=== PATIENT | male | born 1940 | race Caucasian/White ===

== ENCOUNTER → 2023-12-03 08:40 | Outpatient (REF) | payer MEDICARE, OTHER, SELFPAY ==
[2023-12-03 12:13] LABS: Blood Urea Nitrogen 20 mg/dl (9-20); Calcium 9.6 mg/dl (8.4-10.2); Carbon Dioxide 25 mmol/L (22-30); Chloride 103 mmol/L (98-107); Glucose 109 mg/dl (70-99); Potassium 4.7 mmol/L (3.5-5.1); Sodium 138 mmol/L (135-145); eGFR > 60.00
[2023-12-03 12:41] LABS: PSA, Total - Diagnostic 0.43 ng/ml (0.0-4.0)
== END ==
LOC: HWLAB 08:40
PROVIDERS: ATTENDING PHYSICIAN Radiology Radiation Oncology; FAMILY PHYSICIAN Family Medicine; REFERRING PHYSICIAN Family Medicine Geriatric Medicine
DX: C61 Malignant neoplasm of prostate (principal); C44.42 Squamous cell carcinoma of skin of scalp and neck
CPT/HCPCS: 36415; 80048; 84153

== ENCOUNTER → 2024-01-05 08:48 | Outpatient (REF) | payer MEDICARE, OTHER, SELFPAY | LOC: HWRAD 08:48 | PROVIDERS: ATTENDING PHYSICIAN Family Medicine Geriatric Medicine; FAMILY PHYSICIAN Family Medicine | DX: K11.8 Other diseases of salivary glands (principal); C44.42 Squamous cell carcinoma of skin of scalp and neck | CPT/HCPCS: 70470; 71260; 74177; Q9967 ==

== ENCOUNTER → 2024-04-12 10:57 | Outpatient (REF) | payer MEDICARE, OTHER, SELFPAY | LOC: HWRAD 10:57 | PROVIDERS: ATTENDING PHYSICIAN Nurse Practitioner Family | DX: M25.571 Pain in right ankle and joints of right foot (principal) | CPT/HCPCS: 73610; 73630 ==

== ENCOUNTER 2024-12-21 14:00 | Emergency (ER) | payer MEDICARE, OTHER, SELFPAY ==
[2024-12-21 14:01] VITALS: BP 140/97
[2024-12-21 15:32] VITALS: BP 121/76
--- NOTE | 2024-12-21 16:06 | ED.GENMED ---
History of Present Illness
General
Chief Complaint: Fall
Source: patient
Time Seen by Provider: 12/21/24 15:51
History of Present Illness
History of Present Illness:
84-year-old male presents emergency room complaining of pain on the left side after a fall. Patient states he had a fall Wednesday laminas left side. No loss of conscious. He does not take any oral 12/21/2024 anticoagulants. Patient denies feeling
short of breath. He denies any abdominal pain, nausea or vomiting.
Phy Exam
Physical Exam
Physical Exam:
General: Awake, Alert, Oriented X3. No acute distress.
Vitals: unremarkable
Head: Atraumatic
Eyes: Pupils equal, EOMI
Throat: Airway intact, no exudates
Neck: Trachea midline
Chest: Tenderness palpation over the left lateral thorax. No crepitance
Lungs: Clear and equal b/l
Heart: Regular rate, no murmurs
Abd: Soft, Nontender, No pulsatile mass
Neuro: Nonfocal
Skin: Warm, dry, no rash
Extremities: pulses equal b/l, no edema
Course
Orders/Labs/Results
Orders:
Orders
12/21/24 14:04
Ribs, Left 3 View W/PA Chest CR [CR Ribs-left 3 Vw W/pa Chest] Urgent
Comment:
Reason For Exam: pain
Vital Signs
Initial and Last Documented VS:
Initial Vital Signs
Temp Pulse Resp BP Pulse Ox
97.5 F 79 18 140/97 98
12/21/24 14:01 12/21/24 14:01 12/21/24 14:01 12/21/24 14:01 12/21/24 14:01
Last Documented Vital Signs
Temp Pulse Resp BP Pulse Ox
97.5 F 61 16 128/77 98
12/21/24 14:01 12/21/24 16:35 12/21/24 16:35 12/21/24 16:35 12/21/24 16:35
MDM/Problems Addressed
Differential Diagnosis Includes:
Rib fracture, pneumothorax, chest wall contusion, intra-abdominal injury
MDM/Problems Addressed:
Patient presents with pain that has been present since a fall 4 days ago. His abdominal exam is benign. Rib series shows a what could be an old fracture on the left but this is in the area the patient has discomfort. Will treat him as having an
acute rib fracture. No evidence of lung injury. Patient stable for discharge home. His pain is fairly well-controlled at home with Tylenol and ibuprofen which he can continue.
*Radiology
Radiology exam reviewed: radiology read reviewed
*Pulse Oximetry
Patient hypoxic: no
*Critical Care Note
Total Time (30-74mins, 75-104mins- exclusive of procedures): Not Applicable
ED Attending Note
-
Portions of this chart may have been created with voice recognition software.� Occasional wrong word or��sound alike� substitutions may have occurred due to the inherent limitations of voice recognition software.
Discharge Plan
Departure
Patient Disposition: Home (Routine Discharge)
Date of Disposition: 12/21/24
Time of Disposition: 16:09
Patient with high blood pressure during this ER visit?: No
Condition: Good
Discharge Problem:
Rib fracture
Instructions: Rib Fracture
Activity Restrictions/Additional Instructions:
You can take 400mg of ibuprofen and 650mg of Tylenol every 6 hours for pain
Interventions
Interventions:
*Risk Screen - Suicide Last Done: 12/21/24 14:01
*General Assessment Last Done: 12/21/24 14:01
*Neglect/Abuse Screening Last Done: 12/21/24 14:01
*ED- Fall Risk Assessment Last Done: 12/21/24 14:01
*ED COVID-19 Vaccine History Last Done: 12/21/24 14:01
*Nursing Disposition Last Done: 12/21/24 16:43
ED-Musculoskeletal Assessment Last Done: 12/21/24 14:40
ED- Neurological Assessment Last Done: 12/21/24 14:40
ED-Skin Assessment Last Done: 12/21/24 14:41
Discharge Date and Time
Discharge Date/Time: 12/21/24 16:46
Print Language: [id number]
[2024-12-21 16:35] VITALS: BP 128/77
== END 2024-12-21 16:46 | disposition home or self-care (01) ==
LOC: EMR 14:00
PROVIDERS: EMERGENCY PHYSICIAN Emergency Medicine; FAMILY PHYSICIAN Family Medicine
DX: S22.32XA Fracture of one rib, left side, initial encounter for closed fracture (principal); W19.XXXA Unspecified fall, initial encounter
CPT/HCPCS: 99283; 71101

== ENCOUNTER → 2025-01-08 09:41 | Outpatient (REF) | payer MEDICARE, OTHER, SELFPAY | LOC: PAVMRI 09:41 | PROVIDERS: ATTENDING PHYSICIAN Physical Medicine & Rehabilitation; FAMILY PHYSICIAN Family Medicine | DX: M54.16 Radiculopathy, lumbar region (principal) | CPT/HCPCS: 72148 ==

== ENCOUNTER → 2025-02-02 11:01 | Outpatient (REF) | payer MEDICARE, OTHER, SELFPAY ==
[2025-02-02 15:06] LABS: Blood Urea Nitrogen 24 mg/dl (9-20); Calcium 9.6 mg/dl (8.4-10.2); Carbon Dioxide 23 mmol/L (22-30); Chloride 111 mmol/L (98-107); Glucose 112 mg/dl (70-99); Potassium 5.3 mmol/L (3.5-5.1); Sodium 143 mmol/L (135-145); eGFR > 60.00
== END ==
LOC: REG 11:01
PROVIDERS: ATTENDING PHYSICIAN Radiology Radiation Oncology; FAMILY PHYSICIAN Family Medicine
DX: C44.42 Squamous cell carcinoma of skin of scalp and neck (principal)
CPT/HCPCS: 36415; 80048

== ENCOUNTER → 2025-02-05 16:05 | Outpatient (REF) | payer MEDICARE, OTHER, SELFPAY | LOC: RAD 16:05 | PROVIDERS: ATTENDING PHYSICIAN Family Medicine Geriatric Medicine; FAMILY PHYSICIAN Family Medicine | DX: C44.42 Squamous cell carcinoma of skin of scalp and neck (principal); K11.8 Other diseases of salivary glands | CPT/HCPCS: 70491; 71260; Q9967 ==